=== PATIENT | male | born 1970 | race Caucasian/White ===

== ENCOUNTER 2017-02-19 14:04 | Emergency (ER) | payer SELFPAY ==
[2017-02-19] MEDS ORDERED: OXYCODONE-ACETAMINOPHEN 5-325 MG TABLET PO ONE (14:52)
[2017-02-19] MEDS ORDERED: DOXYCYCLINE HYCLATE 100 MG TABLET PO ONE (14:53)
[2017-02-19] MEDS ORDERED: DIPH/PERTUSS(ACELL)/TETANUS VAC/PF 0.5 ML SYR (>=10YO) IM ONE (14:53)
[2017-02-19] MEDS ORDERED: CEPHALEXIN 500 MG CAPSULE PO ONE (14:53)
--- NOTE | 2017-02-19 16:11 | RADIOLOGY REPORT (SQ) ---
EXAM DESCRIPTION: TOE LEFT COMPLETED DATE/TIME: 02/19/2017 4:03 pm REASON FOR STUDY: puncture [place] ocean COMPARISON: None. NUMBER OF VIEWS: Three views. TECHNIQUE: AP, lateral, and oblique images acquired of the left first toe. LIMITATIONS: None. FINDINGS: MINERALIZATION: Normal. BONES: No acute fracture or dislocation. No worrisome bone lesions. JOINTS: No effusions. SOFT TISSUES: No soft tissue swelling. No foreign body. OTHER: No other significant finding. IMPRESSION: NEGATIVE STUDY OF THE LEFT TOE. NO RADIOGRAPHIC EVIDENCE OF ACUTE INJURY. COMMENT: SITE OF TRAUMA/COMPLAINT MARKED/STAMP COMPLETED: YES. TECHNICAL DOCUMENTATION: JOB ID: [id number] [employer]- All Rights Reserved
--- NOTE | 2017-02-19 16:37 | ER Document Report ---
ED Wound - General Chief Complaint: Foot Pain Stated Complaint: PUNCTURE WOUND IN FOOT Time Seen by Provider: 02/19/17 14:48 Notes: Patient is a 46 year old male visiting on vacation. [place] when he felt a stinging and severe pain to his left toe. States it was so severe it radiated up his leg and into his chest. States that was a one time event and he feels better except for a pulsating feeling in his left great toe. two wounds noted on his foot. PMH: DM TRAVEL OUTSIDE OF THE [place] IN LAST 30 DAYS: No - Related Data Allergies/Adverse Reactions: No Known Allergies Allergy (Unverified 02/19/17 14:15) Past Medical History - Social History Smoking Status: Unknown if Ever Smoked Family History: Reviewed & Not Pertinent Renal/ Medical History: Denies: Hx Peritoneal Dialysis Review of Systems - Review of Systems Constitutional: No symptoms reported Skin: See HPI -: Yes All other systems reviewed and negative Physical Exam - Vital signs Vitals: Temp Pulse Resp BP Pulse Ox 97.5 F 88 20 165/90 H 98 02/19/17 14:16 02/19/17 14:16 02/19/17 14:16 02/19/17 14:16 02/19/17 14:16 - General General appearance: Appears well, Alert In distress: None - Cardiovascular Pulses: Normal: Dorsalis pedis Normal capillary refill: Yes - Extremities General lower extremity: Tender - at wounds, Normal color, Normal ROM, Normal strength, Normal temperature, Normal weight bearing - Neurological Neuro grossly intact: Yes Cognition: Normal Orientation: AAOx4 [place] Coma Scale Eye Opening: Spontaneous [place] Coma Scale Verbal: Oriented Kathrin Coma Scale Motor: Obeys Commands Kathrin Coma Scale Total: 15 - Skin Skin irregularity: Laceration - puncture wound medial tip of the great toe on the left, no bleeding, lac measures 2cm in length, second laceration in the web space of the left great toe without bleeding nontender Course - Re-evaluation Re-evalutation: 02/19/17 20:54 Patient is a 46-year-old male who was admitted stable, no acute distress afebrile. Evidence of puncture wound on left big toe. No evidence of retained foreign body on x-ray. Foot was soaked and irrigated in hot water with Betadine. Patient's pain improved since arrival. Patient to be placed on antibiotics for coverage of skin castillo as well as vibrio. Patient educated on signs and symptoms aware of indicating return to the emergency department. Patient agrees with plan. - Vital Signs Vital signs: Temp Pulse Resp BP Pulse Ox 97.5 F 72 20 142/97 H 96 02/19/17 14:16 02/19/17 17:19 02/19/17 14:16 02/19/17 17:19 02/19/17 17:19 - Diagnostic Test Radiology reviewed: Image reviewed, Reports reviewed Discharge - Discharge Clinical Impression: Puncture wound Condition: Good Disposition: HOME, SELF-CARE Instructions: Puncture Wound ([facility]), Marine Puncture Envenomation ([facility]) Prescriptions: Cephalexin Monohydrate [Keflex 500 mg Capsule] 500 mg PO QID #20 capsule Doxycycline Hyclate 100 mg PO BID #20 capsule Ibuprofen [Motrin 800 mg Tablet] 800 mg PO Q8H PRN #30 tab PRN Reason: Forms: Elevated Blood Pressure
[2017-02-19 17:28] VITALS: BP 142/97
== END 2017-02-19 17:28 | disposition home or self-care (01) ==
LOC: ER 14:04
DX: S91.132A Puncture wound without foreign body of left great toe without damage to nail, initial encounter (principal); S91.312A Laceration without foreign body, left foot, initial encounter; X58.XXXA Exposure to other specified factors, initial encounter
CPT/HCPCS: 90471; 90715; 99283